=== PATIENT | male | born 1955 | race Caucasian/White ===

== ENCOUNTER → 2022-12-16 | Outpatient (CLI) | payer MEDICARE ==
[~2022-12-16] MED LIST: IOPAMIDOL 370 MG/ML 100 ML INFUS..BTL INJ ONE
== END ==
LOC: CT 13:23
PROVIDERS: ATTEND Nurse Practitioner Adult Health
DX: R10.0 Acute abdomen (principal); R63.4 Abnormal weight loss
CPT/HCPCS: 74177; Q9967

== ENCOUNTER 2023-02-01 10:16 | Emergency (ER) | payer MEDICARE ==
[~2023-02-01] VITALS: Ht 185.4 cm; Wt 93.6 kg
[2023-02-01] MEDS ORDERED: IRBESARTAN150 MG PO (10:31)
[2023-02-01] MEDS ORDERED: CRESTOR10 MG PO (10:31)
[2023-02-01] MEDS ORDERED: NAPROSYN500 MG PO (11:51)
[2023-02-01] MEDS ORDERED: HYDROCODON-ACE1 EA11 PO (11:52)
== END 2023-02-01 12:22 | disposition home or self-care (01) ==
LOC: FSED 10:33
DX: S20.212A Contusion of left front wall of thorax, initial encounter (principal); W01.198A Fall on same level from slipping, tripping and stumbling with subsequent striking against other object, initial encounter; Y92.89 Other specified places as the place of occurrence of the external cause; I10 Essential (primary) hypertension; E78.5 Hyperlipidemia, unspecified; K21.9 Gastro-esophageal reflux disease without esophagitis; N40.0 Benign prostatic hyperplasia without lower urinary tract symptoms; F17.210 Nicotine dependence, cigarettes, uncomplicated
CPT/HCPCS: 71101; 99283